=== PATIENT | female | born 1975 | race American Indian/Alaskan Native ===

== ENCOUNTER 2017-06-16 18:44 | Emergency (ER) | payer OTHER ==
--- NOTE | 2017-06-16 18:57 | Emergency Department Report ---
Chief Complaint: Chest Pain Stated Complaint: CHEST PAIN/SOB Time Seen by Provider: 06/16/17 18:55 - HPI History of Present Illness: PT states she was on her way home from work and she felt like she was started to panic. PT states she took an ativan but her symptoms progressed to sob and cp - ROS Review of Systems: - n/v lmp 05-27-17 - Exam Physical Exam: PT looks well, non toxic. no acute resp distress gcs 15 rrr MSE screening note: Focused history and physical exam performed. Due to findings the following was ordered: ekg, lab, xr ED Disposition for MSE Condition: Stable
[2017-06-16 20:08] LABS: INR 0.94 (0.87-1.13)
[2017-06-16 20:09] LABS: Partial Thromboplastin Time 26.4 Sec. (24.2-36.6)
[2017-06-16 20:11] LABS: Alanine Aminotransferase 13 units/L (7-56); Albumin 3.7 g/dL (3.9-5); Alkaline Phosphatase 87 units/L (35-129); Anion Gap 19 mmol/L; Blood Urea Nitrogen 18 mg/dL (7-17); Calcium 8.8 mg/dL (8.4-10.2); Carbon Dioxide 22 mmol/L (22-30); Chloride 105.8 mmol/L (98-107); Glucose 78 mg/dL (65-100); Potassium 4.4 mmol/L (3.6-5.0); Sodium 142 mmol/L (137-145); Total Protein 7.4 g/dL (6.3-8.2)
[2017-06-16 20:12] LABS: Hematocrit 40.6 % (30.3-42.9); Hemoglobin 13.1 gm/dl (10.1-14.3); Mean Corpuscular HGB Conc 32 % (30-34); Mean Corpuscular Hemoglobin 27 pg (28-32); Mean Corpuscular Volume 84 fl (79-97); Platelet Count 377 K/mm3 (140-440); Red Blood Count 4.84 M/mm3 (3.65-5.03); Red Cell Distribution Width 16.1 % (13.2-15.2); White Blood Count 8.3 K/mm3 (4.5-11.0)
--- NOTE | 2017-06-16 23:04 | Emergency Department Report ---
ED Chest Pain HPI - General Chief Complaint: Chest Pain Stated Complaint: CHEST PAIN/SOB Time Seen by Provider: 06/16/17 18:55 Source: patient Mode of arrival: Ambulatory Limitations: No Limitations - History of Present Illness Initial Comments: 42-year-old female the past medical history of hypertension, obesity, and anxiety presents to have complaints of sudden onset hortness of breath, anxious feeling, and left-sided chest pain. Symptoms occurred while driving prior to arrival. Patient thus she was having an anxiety attack and benefits of Ativan 0.5 mg. Patient became more concerned when she developed left-sided chest pressure under her breasts and felt lightheaded like she was going to pass out. Patient's left sided chest pain described as a pressure that is worse with inspiration and radiates to her back. No reports of nausea, vomiting, or diaphoresis. Patient states he preparing to receive a gastric surgery. She reports a negative stress test within the last year. Her mom has "angina" but no history of stent, bypass surgery, or MN reported. Patient does not smoke cigarettes. She denies history of elevated cholesterol. Patient denies long distance travel since February and tenderness or leg asymmetry reported. Severity scale (0 -10): 4 - Related Data Home Medications Medication Instructions Recorded Confirmed Last Taken ALBUTEROL Inhaler [Proair] 2 puff IH QID PRN 06/16/17 06/16/17 06/15/17 Furosemide [Lasix TAB] 40 mg PO QDAY 06/16/17 06/16/17 06/16/17 LORazepam [Ativan] 0.5 mg PO Q6H PRN 06/16/17 06/16/17 06/16/17 Potassium Chloride 20 meq PO DAILY 06/16/17 06/16/17 06/16/17 Previous Rx's Medication Instructions Recorded Last Taken Type Ibuprofen [Motrin] 800 mg PO Q8HR PRN #30 tablet 06/17/17 Unknown Rx Allergies Allergy/AdvReac Type Severity Reaction Status Date / Time No Known Allergies Allergy Verified 06/16/17 22:12 Heart Score - HEART Score History: Slightly suspicious EKG: Normal Age: < 45 Risk factors: 1-2 risk factors Troponin: < normal limit HEART Score: 1 ED Review of Systems ROS: Stated complaint: CHEST PAIN/SOB Other details as noted in HPI Comment: All other systems reviewed and negative Other: Constitutional: No fevers chills Eyes: No eye pain visual changes ENT: No ear pain or throat pain Neck: Denies pain Respiratory: Denies cough wheezing Cardiovascular: Denies palpitations, syncope GI: Denies abdominal pain, nausea, vomiting, diarrhea : Denies dysuria Musculoskeletal: Denies back pain, joint swelling Skin: Denies rash, lesions, erythema Neurologic: Denies headache, numbness, weakness Psychiatric: Denies suicidal ideation, hallucinations ED Past Medical Hx - Past Medical History Previous Medical History?: Yes Hx Hypertension: Yes - Surgical History Past Surgical History?: Yes Hx Cholecystectomy: Yes Additional Surgical History: C SECTIONS / LEAP / ECTOPIC - Social History Smoking Status: Never Smoker Substance Use Type: Prescribed - Medications Home Medications: Home Medications Medication Instructions Recorded Confirmed Last Taken Type ALBUTEROL Inhaler [Proair] 2 puff IH QID PRN 06/16/17 06/16/17 06/15/17 History Furosemide [Lasix TAB] 40 mg PO QDAY 06/16/17 06/16/17 06/16/17 History LORazepam [Ativan] 0.5 mg PO Q6H PRN 06/16/17 06/16/17 06/16/17 History Potassium Chloride 20 meq PO DAILY 06/16/17 06/16/17 06/16/17 History Ibuprofen [Motrin] 800 mg PO Q8HR PRN #30 tablet 06/17/17 Unknown Rx ED Physical Exam - General Limitations: No Limitations - Other Other exam information: General: No limitations, patient is alert in no acute distress Head exam: Atraumatic, normocephalic Eyes exam: Normal appearance, pupils equal reactive to light, extraocular movements intact ENT: Moist mucous membrane, normal oropharynx Neck exam: Normal inspection, full range of motion, no meningismus nontender Respiratory exam: Clear to auscultation bilateral, no wheezes, rales, crackles. Chest wall nontender Cardiovascular: Normal rate and rhythm, normal heart sounds Abdomen: Soft, nondistended, and nontender, with normal bowel sounds, no rebound, or guarding Extremity: Full range of motion normal inspection no deformity, no calf tenderness or edema Back: Normal Inspection, full range of motion, no tenderness Neurologic: Alert, oriented x3, cranial nerves intact, no motor or sensory deficit Psychiatric: normal affect, normal mood Skin: Warm, dry, intact ED Course Vital Signs 06/16/17 06/16/17 06/16/17 18:59 22:12 23:00 Temperature 98 F Pulse Rate 68 67 68 Respiratory 22 20 20 Rate Blood Pressure 179/114 Blood Pressure 150/88 139/86 [Left] O2 Sat by Pulse 99 100 98 Oximetry - Reevaluation(s) Reevaluation #1: 06/17/17 00:39 Second set enzymes remain negative. Patient's symptoms remained improved. She' ll be discharged home - Consultations Consultation #1: 06/16/17 22:[address] [employer] network applications specialist addictions therapist. Suggest if enzymes remain negative test patient's had a negative stress test within the last year she may follow-up BRENNAN score - Brennan Score Age > 65: (0) No Aspirin use within the Past 7 Days: (0) No 3 or more CAD Risk Factors: (0) No 2 or more Angina events in past 24 hrs: (0) No Known CAD with more than 50% Stenosis: (0) No Elevated Cardiac Markers: (0) No ST Deviation Greater than 0.5mm: (0) No BRENNAN Score: 0 ED Medical Decision Making - Lab Data Result diagrams: 06/16/17 19:27 06/16/17 19:27 Lab Results 06/16/17 06/16/17 06/16/17 Range/Units 19:27 19:27 19:27 WBC 8.3 (4.5-11.0) K/mm3 RBC 4.84 (3.65-5.03) M/mm3 Hgb 13.1 (10.1-14.3) gm/dl Hct 40.6 (30.3-42.9) % MCV 84 (79-97) fl MCH 27 L (28-32) pg MCHC 32 (30-34) % RDW 16.1 H (13.2-15.2) % Plt Count 377 (140-440) K/mm3 Lymph % (Auto) [employer] Manager [place] % (Auto) Store Loss Prevention Manager Eos % (Auto) Store Loss Prevention Manager Baso % (Auto) Store Loss Prevention Manager Lymph # Store Loss Prevention Manager [place] # Store Loss Prevention Manager Eos # Store Loss Prevention Manager Baso # Store Loss Prevention Manager Seg Neutrophils % Store Loss Prevention Manager Seg Neutrophils # Store Loss Prevention Manager PT 12.5 (12.2-14.9) Sec. INR 0.94 (0.87-1.13) APTT 26.4 (24.2-36.6) Sec. D-Dimer (0-234) ng/mlDDU Sodium 142 (137-145) mmol/L Potassium 4.4 (3.6-5.0) mmol/L Chloride 105.8 (98-107) mmol/L Carbon Dioxide 22 (22-30) mmol/L Anion Gap 19 mmol/L BUN 18 H (7-17) mg/dL Creatinine 0.8 (0.7-1.2) mg/dL Estimated GFR > 60 ml/min BUN/Creatinine Ratio 22.50 % Glucose 78 (65-100) mg/dL Calcium 8.8 (8.4-10.2) mg/dL Total Bilirubin 0.20 (0.1-1.2) mg/dL AST 13 (5-40) units/L ALT 13 (7-56) units/L Alkaline Phosphatase 87 (35-129) units/L Troponin T < 0.010 (0.00-0.029) ng/mL Total Protein 7.4 (6.3-8.2) g/dL Albumin 3.7 L (3.9-5) g/dL Albumin/Globulin Ratio 1.0 % HCG, Qual (Negative) 06/16/17 06/16/17 06/16/17 Range/Units 19:27 22:00 23:33 WBC (4.5-11.0) K/mm3 RBC (3.65-5.03) M/mm3 Hgb (10.1-14.3) gm/dl Hct (30.3-42.9) % MCV (79-97) fl MCH (28-32) pg MCHC (30-34) % RDW (13.2-15.2) % Plt Count (140-440) K/mm3 Lymph % (Auto) [place] % (Auto) Eos % (Auto) Baso % (Auto) Lymph # [place] # Eos # Baso # Seg Neutrophils % Seg Neutrophils # PT (12.2-14.9) Sec. INR (0.87-1.13) APTT (24.2-36.6) Sec. D-Dimer 232.23 (0-234) ng/mlDDU Sodium (137-145) mmol/L Potassium (3.6-5.0) mmol/L Chloride (98-107) mmol/L Carbon Dioxide (22-30) mmol/L Anion Gap mmol/L BUN (7-17) mg/dL Creatinine (0.7-1.2) mg/dL Estimated GFR ml/min BUN/Creatinine Ratio % Glucose (65-100) mg/dL Calcium (8.4-10.2) mg/dL Total Bilirubin (0.1-1.2) mg/dL AST (5-40) units/L ALT (7-56) units/L Alkaline Phosphatase (35-129) units/L Troponin T < 0.010 (0.00-0.029) ng/mL Total Protein (6.3-8.2) g/dL Albumin (3.9-5) g/dL Albumin/Globulin Ratio % HCG, Qual Negative (Negative) - EKG Data -: EKG Interpreted by Me (sinus rhythm rate 67) - EKG Data When compared to previous EKG there are: changes noted (EKG improved compared to previous 07/04/2014) - Radiology Data Radiology results: image reviewed (chest x-ray: No acute finding) - Medical Decision Making Patient has cardiac enzymes 2 are negative, normal EKG, atypical symptoms, and a negative stress test reported with the last year. Case was discussed with cardiology. Patient was discharged home with outpatient follow-up encouraged. - Differential Diagnosis unstable angina, PE, MN, anxiety, atypical chest pain, pleurisy Critical Care Time: No Critical care attestation.: If time is entered above; I have spent that time in minutes in the direct care of this critically ill patient, excluding procedure time. ED Disposition Clinical Impression: Atypical chest pain, Anxiety Disposition: DC-01 TO HOME OR SELFCARE Is pt being admited?: No Condition: Stable Instructions: Chest Pain (ED), Anxiety (ED) Additional Instructions: Continue current medications. Take Motrin or Tylenol for pain. Return if symptoms worsen. Prescriptions: Ibuprofen [Motrin] 800 mg PO Q8HR PRN #30 tablet PRN Reason: Pain Referrals: SRINATH DOUGHERTY MD [Primary Care Provider] - 3-5 Days CAROLYN MANCIA MD [Staff Physician] - 3-5 Days (addictions therapist ) Time of Disposition: 00:41
[2017-06-17] MEDS ORDERED: ATROVENT IH ONE (00:50)
[2017-06-17] MEDS ORDERED: XOPENEX IH ONE (00:50)
[2017-06-17 02:44] VITALS: BP 141/86
--- NOTE | 2017-06-17 11:44 | XRay Report ---
ROUTINE CHEST, TWO VIEWS: HISTORY: One. The trachea, heart, mediastinal contour, lung srinivasna and bony thorax are unremarkable. IMPRESSION: Unremarkable chest x-ray.
[2017-06-17] MEDS ORDERED: COREG ONE (22:04)
== END 2017-06-17 02:44 | disposition home or self-care (01) ==
LOC: ED 18:44
DX: R07.89 Other chest pain (principal); R41.9 Unspecified symptoms and signs involving cognitive functions and awareness; I10 Essential (primary) hypertension
CPT/HCPCS: 36415; 71020; 80053; 84484; 84703; 85025; 85379; 85610; 85730; 93005; 93010; 94640

== ENCOUNTER 2019-01-21 18:06 | Emergency (ER) | payer OTHER ==
--- NOTE | 2019-01-21 18:22 | Emergency Department Report ---
Blank Doc - Documentation Documentation: This is a 43-year-old female that presents with left lower abdominal pain. De nies any nausea vomiting. This initial assessment/diagnostic orders/clinical plan/treatment(s) is/are subject to change based on patient's health status, clinical progression and re- assessment by fellow clinical providers in the ED. Further treatment and workup at subsequent clinical providers discretion. Patient/guardians urged not to elope from the ED as their condition may be serious if not clinically assessed and managed. Initial orders include: 1- Patient sent to [facility] for further evaluation and treatment 2- labs 3- UA
[2019-01-21 18:50] LABS: Basophils # (Auto) 0.1 K/mm3 (0.0-0.1); Eosinophils # (Auto) 0.2 K/mm3 (0.0-0.4); Eosinophils % (Auto) 2.9 % (0.0-4.3); Hematocrit 36.1 % (30.3-42.9); Hemoglobin 12.4 gm/dl (10.1-14.3); Lymphocytes # (Auto) 2.7 K/mm3 (1.2-5.4); Lymphocytes % (Auto) 33.5 % (13.4-35.0); Mean Corpuscular HGB Conc 34 % (30-34); Mean Corpuscular Volume 80 fl (79-97); Monocytes # (Auto) 0.5 K/mm3 (0.0-0.8); Monocytes % (Auto) 6.5 % (0.0-7.3); Platelet Count 360 K/mm3 (140-440); Red Blood Count 4.52 M/mm3 (3.65-5.03); Red Cell Distribution Width 16.2 % (13.2-15.2)
[2019-01-21 19:06] LABS: Albumin 3.5 g/dL (3.9-5); BUN/Creatinine Ratio 20; Blood Urea Nitrogen 18 mg/dL (7-17); Calcium 8.8 mg/dL (8.4-10.2); Hemolysis Index 160
[2019-01-21 19:31] LABS: Bilirubin,Direct < 0.2 mg/dL (0-0.2)
[2019-01-21 19:32] LABS: Alanine Aminotransferase 12 units/L (7-56)
[2019-01-21 22:30] LABS: Bilirubin,Urine NEG (Negative); Blood,Urine MOD (Negative); Color,Urine Yellow (Yellow); Mucus,Urine FEW /HPF; Urobilinogen,Urine < 2.0 mg/dL (<2.0)
--- NOTE | 2019-01-21 23:39 | XRay Report ---
PROCEDURE: XR ABDOMEN 2V TECHNIQUE: 3 views of the abdomen. HISTORY: Abdominal pain and constipation. COMPARISONS: CT abdomen and pelvis dated September 07, 2018. FINDINGS: Right upper quadrant surgical clips noted. Moderate volume of formed stool is present within the colo n. Overall nonobstructive bowel gas pattern. No pneumoperitoneum. No acute osseous abnormality. IMPRESSION: 1. Nonobstructive bowel gas pattern. No pneumoperitoneum. 2. Moderate volume of formed stool fills the colon. This document is electronically signed by Ervin Hartley DO., January 21 2019 11:37:56 PM ET
--- NOTE | 2019-01-22 00:15 | Emergency Department Report ---
ED Abdominal Pain HPI - General Chief Complaint: Abdominal Pain Stated Complaint: ABD PAIN Time Seen by Provider: 01/21/19 18:21 Source: patient Mode of arrival: Ambulatory Limitations: No Limitations - History of Present Illness Initial Comments: Pt is a 43 yo female who presents to the ED with c/o LLQ abd pain that began three days ago. She describes the pain as a cramping. The patient states she has been constipated for two days. Pt has not tried any medication to relieve the constipation. She denies any N/V/D or fever. She is tolerating PO intake with no difficulty. LNMP January 06, pt has a hx of HTN, and asthma. Currently takes losartan and hctz for her HTN, states she took it today. has no other complaints. Severity scale (0 -10): 6 - Related Data Previous Rx's Medication Instructions Recorded Last Taken Type ALBUTEROL Inhaler (OR & NICU) 2 puff IH QID PRN #1 inha 06/19/17 Unknown Rx [ProAir HFA Inhaler] Butalb/Acetamin/Caff 50-325-40 1 tab PO Q6HR PRN #14 tablet 06/19/17 Unknown Rx [Fioricet] Carvedilol [Coreg] 6.25 mg PO BID #60 tablet 06/19/17 Unknown Rx LORazepam [Ativan] 0.5 mg PO Q6H PRN #7 tablet 06/19/17 Unknown Rx Losartan/Hydrochlorothiazide 1 each PO DAILY #30 tablet 06/19/17 Unknown Rx [Losartan-Hctz 100-25 mg Tab] Naproxen [Naprosyn] 500 mg PO BID PRN #30 tablet 09/08/18 Unknown Rx Dicyclomine [Bentyl] 10 mg PO DAILY PRN #10 capsule 01/22/19 Unknown Rx Docusate Sodium [Colace] 100 mg PO BID PRN #14 capsule 01/22/19 Unknown Rx Glycerin 1 each RC DAILY PRN #10 supp.rect 01/22/19 Unknown Rx Magnesium Citrate 295 ml PO DAILY #1 bottle 01/22/19 Unknown Rx Allergies Allergy/AdvReac Type Severity Reaction Status Date / Time banana Allergy Swelling Verified 01/21/19 18:21 latex Allergy Swelling Verified 01/21/19 18:21 ED Review of Systems ROS: Stated complaint: ABD PAIN Other details as noted in HPI Comment: All other systems reviewed and negative ED Past Medical Hx - Past Medical History Hx Hypertension: Yes Hx Congestive Heart Failure: No Hx Diabetes: No Hx Asthma: Yes Additional medical history: chest pain, SOB - Surgical History Hx Cholecystectomy: Yes Additional Surgical History: C SECTIONS / LEAP / ECTOPIC - Social History Smoking Status: Never Smoker Substance Use Type: None - Medications Home Medications: Home Medications Medication Instructions Recorded Confirmed Last Taken Type ALBUTEROL Inhaler (OR & NICU) 2 puff IH QID PRN #1 inha 06/19/17 Unknown Rx [ProAir HFA Inhaler] Butalb/Acetamin/Caff 50-325-40 1 tab PO Q6HR PRN #14 tablet 06/19/17 Unknown Rx [Fioricet] Carvedilol [Coreg] 6.25 mg PO BID #60 tablet 06/19/17 Unknown Rx LORazepam [Ativan] 0.5 mg PO Q6H PRN #7 tablet 06/19/17 Unknown Rx Losartan/Hydrochlorothiazide 1 each PO DAILY #30 tablet 06/19/17 Unknown Rx [Losartan-Hctz 100-25 mg Tab] Naproxen [Naprosyn] 500 mg PO BID PRN #30 tablet 09/08/18 Unknown Rx Dicyclomine [Bentyl] 10 mg PO DAILY PRN #10 capsule 01/22/19 Unknown Rx Docusate Sodium [Colace] 100 mg PO BID PRN #14 capsule 01/22/19 Unknown Rx Glycerin 1 each RC DAILY PRN #10 supp.rect 01/22/19 Unknown Rx Magnesium Citrate 295 ml PO DAILY #1 bottle 01/22/19 Unknown Rx ED Physical Exam - General Limitations: No Limitations General appearance: alert, in no apparent distress, other (pt has box of [employer] sitting next to her that she has been eating in the ED) - Head Head exam: Present: atraumatic, normocephalic - Eye Eye exam: Present: normal appearance - ENT ENT exam: Present: mucous membranes moist - Respiratory Respiratory exam: Present: normal lung sounds bilaterally. Absent: respiratory distress, wheezes, rales, rhonchi, stridor, chest wall tenderness, accessory muscle use, decreased breath sounds, prolonged expiratory - Cardiovascular Cardiovascular Exam: Present: regular rate, normal rhythm, normal heart sounds. Absent: systolic murmur, diastolic murmur, rubs, gallop - GI/Abdominal GI/Abdominal exam: Present: soft, normal bowel sounds. Absent: distended, tenderness, guarding, rebound, rigid, organomegaly, mass, pulsatile mass - Neurological Exam Neurological exam: Present: alert, oriented X3 - Psychiatric Psychiatric exam: Present: normal affect, normal mood - Skin Skin exam: Present: warm, dry, intact ED Course Vital Signs 01/21/19 01/22/19 18:21 00:50 Temperature 98.5 F 98.7 F Pulse Rate 79 80 Respiratory 18 16 Rate Blood Pressure 153/102 Blood Pressure 171/110 [Left] O2 Sat by Pulse 98 98 Oximetry ED Medical Decision Making - Lab Data Result diagrams: 01/21/19 18:32 01/21/19 18:32 Labs 01/21/19 01/21/19 01/21/19 18:32 18:32 18:32 WBC 8.2 RBC 4.52 Hgb 12.4 Hct 36.1 MCV 80 MCH 28 MCHC 34 RDW 16.2 H Plt Count 360 Lymph % (Auto) 33.5 [place] % (Auto) 6.5 Eos % (Auto) 2.9 Baso % (Auto) 1.0 Lymph # 2.7 [place] # 0.5 Eos # 0.2 Baso # 0.1 Seg Neutrophils % 56.1 Seg Neutrophils # 4.6 Sodium 137 Potassium 4.8 Chloride 101.5 Carbon Dioxide 24 Anion Gap 16 BUN 18 H Creatinine 0.9 Estimated GFR > 60 BUN/Creatinine Ratio 20 Glucose 97 Calcium 8.8 Total Bilirubin 0.20 Direct Bilirubin < 0.2 Indirect Bilirubin 0.0 AST 17 ALT 12 Alkaline Phosphatase 85 Total Protein 7.2 Albumin 3.5 L Albumin/Globulin Ratio 0.9 Lipase 18 HCG, Qual Negative Urine Color Urine Turbidity Urine pH Ur Specific [place] Urine Protein Urine Glucose (UA) Urine Ketones Urine Blood Urine Nitrite Urine Bilirubin Urine Urobilinogen Ur Leukocyte Esterase Urine WBC (Auto) Urine RBC (Auto) U Epithel Cells (Auto) Urine Mucus 01/21/19 22:08 WBC RBC Hgb Hct MCV MCH MCHC RDW Plt Count Lymph % (Auto) [place] % (Auto) Eos % (Auto) Baso % (Auto) Lymph # [place] # Eos # Baso # Seg Neutrophils % Seg Neutrophils # Sodium Potassium Chloride Carbon Dioxide Anion Gap BUN Creatinine Estimated GFR BUN/Creatinine Ratio Glucose Calcium Total Bilirubin Direct Bilirubin Indirect Bilirubin AST ALT Alkaline Phosphatase Total Protein Albumin Albumin/Globulin Ratio Lipase HCG, Qual Urine Color Yellow Urine Turbidity Slightly-cloudy Urine pH 6.0 Ur Specific [place] 1.031 H Urine Protein 30 mg/dl Urine Glucose (UA) Neg Urine Ketones Neg Urine Blood Mod Urine Nitrite Neg Urine Bilirubin Neg Urine Urobilinogen < 2.0 Ur Leukocyte Esterase Tr Urine WBC (Auto) 1.0 Urine RBC (Auto) 27.0 U Epithel Cells (Auto) 16.0 H Urine Mucus Few - Radiology Data Radiology results: report reviewed ROCEDURE: XR ABDOMEN 2V TECHNIQUE: 3 views of the abdomen. HISTORY: Abdominal pain and constipation. COMPARISONS: CT abdomen and pelvis dated September 07, 2018. FINDINGS: Right upper quadrant surgical clips noted. Moderate volume of formed stool is present within the colon. Overall nonobstructive bowel gas pattern. No pneumoperitoneum. No acute osseous abnormality. IMPRESSION: 1. Nonobstructive bowel gas pattern. No pneumoperitoneum. 2. Moderate volume of formed stool fills the colon. This document is electronically signed by Ervin Hartley DO., January 21 2019 11:37:56 PM ET - Medical Decision Making Pt is a 43 yo female who presents to the ED with c/o LLQ abd pain that began three days ago. She describes the pain as a cramping. The patient states she has been constipated for two days. Pt has not tried any medication to relieve the constipation. She denies any N/V/D or fever. She is tolerating PO intake with no difficulty. LNMP January 06, pt has a hx of HTN, and asthma. Currently takes losartan and hctz for her HTN, states she took it today. has no other complaints. labs are WNL. no leukocytosis. UA is normal. pt is afebrile and not tachycardic. XR of the abdomen shows moderate amount of stool and non obstructive gas pattern other parada normal. pt has good bowel sounds and no abd tenderness. Pt is able to eat a dominos pizza while in the ED. Will give pt appropriate tx for constipation. Will have pt follow up with PCP in the next 2-3 days. Return to the emergency room for any new or worsening symptoms. Critical care attestation.: If time is entered above; I have spent that time in minutes in the direct care of this critically ill patient, excluding procedure time. ED Disposition Clinical Impression: Constipation Qualifiers: Constipation type: unspecified constipation type Qualified Code(s): K59.00 - Constipation, unspecified Abdominal pain Qualifiers: Abdominal location: left lower quadrant Qualified Code(s): R10.32 - Left lower quadrant pain Disposition: TO HOME OR SELFCARE Is pt being admited?: No Does the pt Need Aspirin: No Condition: Stable Instructions: Constipation (ED), High Fiber Diet (ED), Abdominal Pain (ED) Additional Instructions: Please follow up with a primary care doctor in the next 2-3 days. Take medication as prescribed. Drink plenty of fluids and eat a high fiber diet. Return to the emergency room for any new or worsening symptoms. Prescriptions: Dicyclomine [Bentyl] 10 mg PO DAILY PRN #10 capsule PRN Reason: Gas Pain Docusate Sodium [Colace] 100 mg PO BID PRN #14 capsule PRN Reason: Constipation Glycerin 1 each RC DAILY PRN #10 supp.rect PRN Reason: Constipation Magnesium Citrate 295 ml PO DAILY #1 bottle Referrals: [facility] [Other] - 2-3 Days Forms: Work/School Release Form(ED) Time of Disposition: 00:16 Print Language: SAMOAN
[2019-01-22 00:51] VITALS: BP 171/110
== END 2019-01-22 00:50 | disposition home or self-care (01) ==
LOC: ED 18:06
DX: K59.00 Constipation, unspecified (principal); I10 Essential (primary) hypertension; J45.909 Unspecified asthma, uncomplicated; Z90.49 Acquired absence of other specified parts of digestive tract; Z91.018 Allergy to other foods; Z91.040 Latex allergy status
CPT/HCPCS: 36415; 74019; 80048; 80076; 81001; 83690; 84703; 85025

== ENCOUNTER 2019-03-22 06:24 | Emergency (ER) | payer OTHER ==
[2019-03-22 07:11] LABS: Basophils # (Auto) 0.1 K/mm3 (0.0-0.1); Eosinophils # (Auto) 0.2 K/mm3 (0.0-0.4); Eosinophils % (Auto) 3.3 % (0.0-4.3); Hematocrit 36.5 % (30.3-42.9); Hemoglobin 11.8 gm/dl (10.1-14.3); Lymphocytes # (Auto) 1.9 K/mm3 (1.2-5.4); Lymphocytes % (Auto) 31.5 % (13.4-35.0); Mean Corpuscular HGB Conc 32 % (30-34); Mean Corpuscular Volume 82 fl (79-97); Monocytes # (Auto) 0.3 K/mm3 (0.0-0.8); Monocytes % (Auto) 5.2 % (0.0-7.3); Platelet Count 384 K/mm3 (140-440); Red Blood Count 4.46 M/mm3 (3.65-5.03); Red Cell Distribution Width 15.7 % (13.2-15.2)
[2019-03-22 07:25] LABS: BUN/Creatinine Ratio 15; Blood Urea Nitrogen 12 mg/dL (7-17); Calcium 8.7 mg/dL (8.4-10.2); Hemolysis Index 16
--- NOTE | 2019-03-22 07:46 | XRay Report ---
PROCEDURE: XR CHEST 1V AP TECHNIQUE: Chest radiograph single view. HISTORY: Chest Pain COMPARISONS: 06/17/2017 . FINDINGS: No mediastinal shift. Cardiac silhouette is not enlarged. No pneumothorax, effusion, or focal pulmona ry opacity identified. No acute skeletal findings. IMPRESSION: No acute pulmonary finding identified. This document is electronically signed by Larry Becerril MD., March 22 2019 08:44:12 AM ET
[2019-03-22] MEDS ORDERED: FIORICET PO ONE (08:53)
--- NOTE | 2019-03-22 08:53 | Emergency Department Report ---
ED General Adult HPI - General Chief complaint: Chest Pain Stated complaint: RODRIGUEZ/HBP/CHEST TIGHTNESS Time Seen by Provider: 03/22/19 08:50 Source: patient Mode of arrival: Ambulatory Limitations: No Limitations - History of Present Illness Initial comments: The patient presents to the emergency department with a chief complaint of chest pain that started yesterday. Patient states the chest pain is located on the left side of her chest and denies any radiation of her chest pain. Patient also complains of a posterior headache that she describes as throbbing in nature and consistent with headaches she's had previously and is not the worse headache of her life. -: Sudden Location: head, chest Radiation: non-radiation Severity scale (0 -10): 5 Quality: aching Consistency: constant Improves with: none Worsens with: none Associated Symptoms: denies other symptoms Treatments Prior to Arrival: none - Related Data Previous Rx's Medication Instructions Recorded Last Taken Type ALBUTEROL Inhaler (OR & NICU) 2 puff IH QID PRN #1 inha 06/19/17 Unknown Rx [ProAir HFA Inhaler] Butalb/Acetamin/Caff 50-325-40 1 tab PO Q6HR PRN #14 tablet 06/19/17 Unknown Rx [Fioricet 50-325-40] Carvedilol [Coreg] 6.25 mg PO BID #60 tablet 06/19/17 Unknown Rx LORazepam [Ativan] 0.5 mg PO Q6H PRN #7 tablet 06/19/17 Unknown Rx Losartan/Hydrochlorothiazide 1 each PO DAILY #30 tablet 06/19/17 Unknown Rx [Losartan-Hctz 100-25 mg Tab] Naproxen [Naprosyn] 500 mg PO BID PRN #30 tablet 09/08/18 Unknown Rx Dicyclomine [Bentyl] 10 mg PO DAILY PRN #10 capsule 01/22/19 Unknown Rx Docusate Sodium [Colace] 100 mg PO BID PRN #14 capsule 01/22/19 Unknown Rx Glycerin 1 each RC DAILY PRN #10 supp.rect 01/22/19 Unknown Rx Magnesium Citrate 295 ml PO DAILY #1 bottle 01/22/19 Unknown Rx Allergies Allergy/AdvReac Type Severity Reaction Status Date / Time banana Allergy Swelling Verified 01/21/19 18:21 latex Allergy Swelling Verified 01/21/19 18:21 ED Review of Systems ROS: Stated complaint: RODRIGUEZ/HBP/CHEST TIGHTNESS Other details as noted in HPI Constitutional: denies: chills, fever Eyes: denies: eye pain, eye discharge, vision change ENT: denies: ear pain, throat pain Respiratory: denies: cough, shortness of breath, wheezing Cardiovascular: chest pain. denies: palpitations Endocrine: no symptoms reported Gastrointestinal: denies: abdominal pain, nausea, diarrhea Genitourinary: denies: urgency, dysuria, discharge Musculoskeletal: denies: back pain, joint swelling, arthralgia Skin: denies: rash, lesions Neurological: headache. denies: weakness, paresthesias Psychiatric: denies: anxiety, depression Hematological/Lymphatic: denies: easy bleeding, easy bruising ED Past Medical Hx - Past Medical History Previous Medical History?: Yes Hx Hypertension: Yes Hx Congestive Heart Failure: No Hx Diabetes: No Hx Psychiatric Treatment: Yes (anxiety) Hx Asthma: Yes Additional medical history: chest pain, SOB - Surgical History Past Surgical History?: Yes Hx Cholecystectomy: Yes Additional Surgical History: C SECTIONS / LEAP / ECTOPIC - Social History Smoking Status: Never Smoker - Medications Home Medications: Home Medications Medication Instructions Recorded Confirmed Last Taken Type ALBUTEROL Inhaler (OR & NICU) 2 puff IH QID PRN #1 inha 06/19/17 Unknown Rx [ProAir HFA Inhaler] Butalb/Acetamin/Caff 50-325-40 1 tab PO Q6HR PRN #14 tablet 06/19/17 Unknown Rx [Fioricet 50-325-40] Carvedilol [Coreg] 6.25 mg PO BID #60 tablet 06/19/17 Unknown Rx LORazepam [Ativan] 0.5 mg PO Q6H PRN #7 tablet 06/19/17 Unknown Rx Losartan/Hydrochlorothiazide 1 each PO DAILY #30 tablet 06/19/17 Unknown Rx [Losartan-Hctz 100-25 mg Tab] Naproxen [Naprosyn] 500 mg PO BID PRN #30 tablet 09/08/18 Unknown Rx Dicyclomine [Bentyl] 10 mg PO DAILY PRN #10 capsule 01/22/19 Unknown Rx Docusate Sodium [Colace] 100 mg PO BID PRN #14 capsule 01/22/19 Unknown Rx Glycerin 1 each RC DAILY PRN #10 supp.rect 01/22/19 Unknown Rx Magnesium Citrate 295 ml PO DAILY #1 bottle 01/22/19 Unknown Rx ED Physical Exam - General Limitations: No Limitations General appearance: alert, in no apparent distress - Head Head exam: Present: atraumatic, normocephalic - Eye Eye exam: Present: normal appearance, PERRL, EOMI - ENT ENT exam: Present: mucous membranes moist - Neck Neck exam: Present: normal inspection - Respiratory Respiratory exam: Present: normal lung sounds bilaterally. Absent: respiratory distress - Cardiovascular Cardiovascular Exam: Present: regular rate, normal rhythm. Absent: systolic murmur, diastolic murmur, rubs, gallop - GI/Abdominal GI/Abdominal exam: Present: soft, normal bowel sounds. Absent: distended, tenderness - Extremities Exam Extremities exam: Present: normal inspection - Back Exam Back exam: Present: normal inspection - Neurological Exam Neurological exam: Present: alert, oriented X3, CN II-XII intact. Absent: motor sensory deficit - Psychiatric Psychiatric exam: Present: normal affect, normal mood - Skin Skin exam: Present: warm, dry, intact, normal color. Absent: rash ED Course Vital Signs 03/22/19 03/22/19 03/22/19 06:27 06:35 07:30 Temperature 97.9 F 97.9 F Pulse Rate 74 75 59 L Respiratory 18 18 14 Rate Blood Pressure 168/93 168/93 152/102 O2 Sat by Pulse 98 98 98 Oximetry 03/22/19 03/22/19 03/22/19 08:00 08:31 09:00 Temperature Pulse Rate 57 L 60 63 Respiratory 15 20 20 Rate Blood Pressure 151/92 151/92 129/87 O2 Sat by Pulse 95 96 98 Oximetry 03/22/19 09:15 Temperature Pulse Rate Respiratory 18 Rate Blood Pressure O2 Sat by Pulse Oximetry ED Medical Decision Making - Lab Data Result diagrams: 03/22/19 06:45 03/22/19 06:45 Lab Results 03/22/19 03/22/19 03/22/19 Range/Units 06:45 06:45 06:45 WBC 6.1 (4.5-11.0) K/mm3 RBC 4.46 (3.65-5.03) M/mm3 Hgb 11.8 (10.1-14.3) gm/dl Hct 36.5 (30.3-42.9) % MCV 82 (79-97) fl MCH 27 L (28-32) pg MCHC 32 (30-34) % RDW 15.7 H (13.2-15.2) % Plt Count 384 (140-440) K/mm3 Lymph % (Auto) 31.5 (13.4-35.0) % [place] % (Auto) 5.2 (0.0-7.3) % Eos % (Auto) 3.3 (0.0-4.3) % Baso % (Auto) 1.0 (0.0-1.8) % Lymph # 1.9 (1.2-5.4) K/mm3 [place] # 0.3 (0.0-0.8) K/mm3 Eos # 0.2 (0.0-0.4) K/mm3 Baso # 0.1 (0.0-0.1) K/mm3 Seg Neutrophils % 59.0 (40.0-70.0) % Seg Neutrophils # 3.6 (1.8-7.7) K/mm3 Sodium 138 (137-145) mmol/L Potassium 3.8 (3.6-5.0) mmol/L Chloride 100.8 (98-107) mmol/L Carbon Dioxide 25 (22-30) mmol/L Anion Gap 16 mmol/L BUN 12 (7-17) mg/dL Creatinine 0.8 (0.7-1.2) mg/dL Estimated GFR > 60 ml/min BUN/Creatinine Ratio 15 % Glucose 108 H (65-100) mg/dL Calcium 8.7 (8.4-10.2) mg/dL Troponin T < 0.010 (0.00-0.029) ng/mL HCG, Qual Negative (Negative) 03/22/19 Range/Units 09:59 WBC (4.5-11.0) K/mm3 RBC (3.65-5.03) M/mm3 Hgb (10.1-14.3) gm/dl Hct (30.3-42.9) % MCV (79-97) fl MCH (28-32) pg MCHC (30-34) % RDW (13.2-15.2) % Plt Count (140-440) K/mm3 Lymph % (Auto) (13.4-35.0) % [place] % (Auto) (0.0-7.3) % Eos % (Auto) (0.0-4.3) % Baso % (Auto) (0.0-1.8) % Lymph # (1.2-5.4) K/mm3 [place] # (0.0-0.8) K/mm3 Eos # (0.0-0.4) K/mm3 Baso # (0.0-0.1) K/mm3 Seg Neutrophils % (40.0-70.0) % Seg Neutrophils # (1.8-7.7) K/mm3 Sodium (137-145) mmol/L Potassium (3.6-5.0) mmol/L Chloride (98-107) mmol/L Carbon Dioxide (22-30) mmol/L Anion Gap mmol/L BUN (7-17) mg/dL Creatinine (0.7-1.2) mg/dL Estimated GFR ml/min BUN/Creatinine Ratio % Glucose (65-100) mg/dL Calcium (8.4-10.2) mg/dL Troponin T < 0.010 (0.00-0.029) ng/mL HCG, Qual (Negative) - EKG Data -: EKG Interpreted by Mi EKG shows normal: sinus rhythm Rate: normal - Radiology Data Radiology results: report reviewed - Medical Decision Making Discussed results with patient and RODRIGUEZ improved with [facility] Critical care attestation.: If time is entered above; I have spent that time in minutes in the direct care of this critically ill patient, excluding procedure time. ED Disposition Clinical Impression: Hypertension, Headache, Nonspecific chest pain Disposition: TO HOME OR SELFCARE Is pt being admited?: No Does the pt Need Aspirin: No Condition: Stable Instructions: Hypertension (ED), Noncardiac Chest Pain (ED), Acute Headache (ED) Additional Instructions: return if worse Referrals: AUBREY CASTREJON MD [Primary Care Provider] - 3-5 Days [facility] [Provider Group] - 3-5 Days [facility] [Provider Group] - 3-5 Days Time of Disposition: 11:04
[2019-03-22 11:01] VITALS: BP 143/86
== END 2019-03-22 11:33 | disposition home or self-care (01) ==
LOC: ED 06:24
DX: I10 Essential (primary) hypertension (principal); J45.909 Unspecified asthma, uncomplicated; Z90.49 Acquired absence of other specified parts of digestive tract; Z91.040 Latex allergy status; Z91.018 Allergy to other foods; Z79.899 Other long term (current) drug therapy
CPT/HCPCS: 36415; 71045; 80048; 84484; 84703; 85025; 93005; 93010; 99284

== ENCOUNTER 2019-10-16 11:36 | Emergency (ER) | payer OTHER ==
--- NOTE | 2019-10-16 15:33 | Emergency Department Report ---
ED General Adult HPI - General Chief complaint: Pain General Stated complaint: LEFT FLANK PAIN HEADACHE Source: patient Mode of arrival: Ambulatory Limitations: No Limitations - History of Present Illness Initial comments: 44 yo female c/o left flank pain and urinary frequency and Headahce. She was recently hospitalized at [facility] for Exacerbation of Asthma and flu dis charged on 10/12/19. States 2 weeks ago she was treated for UTI with Cephalexin and symptoms did not improve. She denies fever chills, no chest pain no SOB. -: Gradual Quality: aching Consistency: constant Improves with: none Worsens with: none Associated Symptoms: denies: confusion, chest pain, cough, diaphoresis, fever/chills, loss of appetite, malaise, nausea/vomiting, rash, seizure, shortness of breath, weakness Treatments Prior to Arrival: none - Related Data Previous Rx's Medication Instructions Recorded Last Taken Type ALBUTEROL Inhaler (OR & NICU) 2 puff IH QID PRN #1 inha 06/19/17 Unknown Rx [ProAir HFA Inhaler] Butalb/Acetamin/Caff 50-325-40 1 tab PO Q6HR PRN #14 tablet 06/19/17 Unknown Rx [Fioricet 50-325-40] LORazepam [Ativan] 0.5 mg PO Q6H PRN #7 tablet 06/19/17 Unknown Rx Losartan/Hydrochlorothiazide 1 each PO DAILY #30 tablet 06/19/17 Unknown Rx [Losartan-Hctz 100-25 mg Tab] carvediloL [Coreg] 6.25 mg PO BID #60 tablet 06/19/17 Unknown Rx Naproxen [Naprosyn] 500 mg PO BID PRN #30 tablet 09/08/18 Unknown Rx Dicyclomine [Bentyl] 10 mg PO DAILY PRN #10 capsule 01/22/19 Unknown Rx Docusate Sodium [Colace] 100 mg PO BID PRN #14 capsule 01/22/19 Unknown Rx Glycerin 1 each RC DAILY PRN #10 supp.rect 01/22/19 Unknown Rx Magnesium Citrate 295 ml PO DAILY #1 bottle 01/22/19 Unknown Rx Sulfamethoxazole/Trimethoprim 1 each PO BID 7 Days #14 tablet 10/16/19 Unknown Rx [Bactrim DS TAB] Allergies Allergy/AdvReac Type Severity Reaction Status Date / Time banana Allergy Swelling Verified 01/21/19 18:21 latex Allergy Swelling Verified 01/21/19 18:21 ED Review of Systems ROS: Stated complaint: CHEST PRESSURE/HEADACHE/LFT SIDE Other details as noted in HPI ED Past Medical Hx - Past Medical History Hx Hypertension: Yes Hx Congestive Heart Failure: No Hx Diabetes: No Hx Psychiatric Treatment: Yes (anxiety) Hx Asthma: Yes Additional medical history: chest pain, SOB - Surgical History Hx Cholecystectomy: Yes Additional Surgical History: C SECTIONS / LEAP / ECTOPIC - Social History Smoking Status: Never Smoker - Medications Home Medications: Home Medications Medication Instructions Recorded Confirmed Last Taken Type ALBUTEROL Inhaler (OR & NICU) 2 puff IH QID PRN #1 inha 06/19/17 Unknown Rx [ProAir HFA Inhaler] Butalb/Acetamin/Caff 50-325-40 1 tab PO Q6HR PRN #14 tablet 06/19/17 Unknown Rx [Fioricet 50-325-40] LORazepam [Ativan] 0.5 mg PO Q6H PRN #7 tablet 06/19/17 Unknown Rx Losartan/Hydrochlorothiazide 1 each PO DAILY #30 tablet 06/19/17 Unknown Rx [Losartan-Hctz 100-25 mg Tab] carvediloL [Coreg] 6.25 mg PO BID #60 tablet 06/19/17 Unknown Rx Naproxen [Naprosyn] 500 mg PO BID PRN #30 tablet 09/08/18 Unknown Rx Dicyclomine [Bentyl] 10 mg PO DAILY PRN #10 capsule 01/22/19 Unknown Rx Docusate Sodium [Colace] 100 mg PO BID PRN #14 capsule 01/22/19 Unknown Rx Glycerin 1 each RC DAILY PRN #10 supp.rect 01/22/19 Unknown Rx Magnesium Citrate 295 ml PO DAILY #1 bottle 01/22/19 Unknown Rx Sulfamethoxazole/Trimethoprim 1 each PO BID 7 Days #14 tablet 10/16/19 Unknown Rx [Bactrim DS TAB] ED Physical Exam - General Limitations: No Limitations General appearance: alert, in no apparent distress - Head Head exam: Present: atraumatic - Eye Eye exam: Present: normal appearance. Absent: conjunctival injection - ENT ENT exam: Present: normal exam, mucous membranes moist, TM's normal bilaterally - Neck Neck exam: Present: normal inspection. Absent: tenderness, lymphadenopathy - Respiratory Respiratory exam: Present: normal lung sounds bilaterally. Absent: respiratory distress, wheezes, rales, rhonchi - Cardiovascular Cardiovascular Exam: Present: regular rate, normal heart sounds - GI/Abdominal GI/Abdominal exam: Present: soft. Absent: distended, tenderness, guarding - Extremities Exam Extremities exam: Present: normal inspection - Back Exam Back exam: Present: normal inspection. Absent: CVA tenderness (R), CVA tenderness (L) - Neurological Exam Neurological exam: Present: alert - Psychiatric Psychiatric exam: Present: normal affect - Skin Skin exam: Present: warm, dry, intact, normal color. Absent: rash, diaphoretic, erythema ED Course Vital Signs 10/16/19 10/16/19 10/16/19 11:44 14:25 17:09 Temperature 98.3 F Pulse Rate 82 91 H 76 Respiratory 16 18 Rate Blood Pressure 138/80 Blood Pressure 142/81 124/72 [Right] O2 Sat by Pulse 95 99 Oximetry ED Medical Decision Making - Medical Decision Making 44 yo left left side pain recent hospitalization for Asthma and influenza. 2 weeks ago treated with Cephalexin for UTI reports no improvement. Urinary frequency continues. Denies fever and chills no vomiting no diarrhea. Urine WBC 14. large blood Pt well appearing in no distress. Lungs are clear. Clinical impression UTI discussed with patient at lenght the importance of follow up with PCP to follow up urine culture results and if no improvement or worsening symptoms. Pt state she is able to follow up with PCP. Critical Care Time: No Critical care attestation.: If time is entered above; I have spent that time in minutes in the direct care of this critically ill patient, excluding procedure time. ED Disposition Clinical Impression: UTI (urinary tract infection) Qualifiers: Urinary tract infection type: acute cystitis Hematuria presence: with hematuria Qualified Code(s): N30.01 - Acute cystitis with hematuria Disposition: TO HOME OR SELFCARE Is pt being admited?: No Does the pt Need Aspirin: No Condition: Stable Instructions: Urinary Tract Infection in Women (ED) Additional Instructions: Drink plenty fluids. Follow up results of urine culture. Make appointment to see your doctor in 3-5 days. Return to the ER for worsening symptoms like fever increasing pain vomiting and abdominal pain. Prescriptions: Sulfamethoxazole/Trimethoprim [Bactrim DS TAB] 1 each PO BID 7 Days #14 tablet Referrals: PRIMARY CARE, [Primary Care Provider] - 3-5 Days Forms: Work/School Release Form(ED) Time of Disposition: 17:54
[2019-10-16 16:10] LABS: Bilirubin,Urine NEG (Negative); Blood,Urine LG (Negative); Color,Urine Yellow (Yellow); Mucus,Urine FEW /HPF; Protein,Urine <15 mg/dL mg/dL (Negative); Urobilinogen,Urine < 2.0 mg/dL (<2.0)
[2019-10-16 16:14] LABS: HCG Qualitative,Urine Negative (Negative)
[2019-10-16 17:10] VITALS: BP 124/72
== END 2019-10-16 17:09 | disposition home or self-care (01) ==
LOC: ED 11:36
DX: N39.0 Urinary tract infection, site not specified (principal); I10 Essential (primary) hypertension; F41.9 Anxiety disorder, unspecified; J45.909 Unspecified asthma, uncomplicated; Z79.899 Other long term (current) drug therapy; Z91.040 Latex allergy status; Z91.018 Allergy to other foods
CPT/HCPCS: 81001; 81025; 87086